=== PATIENT | female | born 1960 | race Two or more races ===

== ENCOUNTER 2019-06-11 11:27 | Emergency (ER) | payer SELFPAY ==
[~2019-06-11] VITALS: Ht 167.6 cm; Wt 78.5 kg
[2019-06-11 11:40] VITALS: BP 112/45
[2019-06-11] MEDS ORDERED: KETOROLAC TROMETH 60MG/2ML VIAL IM ONE (12:45)
== END 2019-06-11 13:20 | disposition home or self-care (01) ==
LOC: ER 11:27
DX: S29.012A Strain of muscle and tendon of back wall of thorax, initial encounter (principal); X50.0XXA Overexertion from strenuous movement or load, initial encounter; Y93.89 Activity, other specified; Y99.8 Other external cause status; Y92.89 Other specified places as the place of occurrence of the external cause
CPT/HCPCS: 71046; 96372; 99283; J1885